=== PATIENT | male | born 1990 | race Caucasian/White ===

== ENCOUNTER 2022-05-17 10:50 | Emergency (ER) | payer SELFPAY ==
[~2022-05-17] VITALS: Ht 167.6 cm; Wt 80.0 kg
[2022-05-17] MEDS ORDERED: BACITRACIN ZINC OINT UDPKT TOP NR (11:30)
[2022-05-17] MEDS ORDERED: IBUP-2029 PO (11:34)
[2022-05-17] MEDS ORDERED: AMOX1TAB16 PO (11:34)
[2022-05-17 12:18] VITALS: BP 125/76
== END 2022-05-17 12:19 | disposition home or self-care (01) ==
LOC: ER 10:56
DX: S30.871A Other superficial bite of abdominal wall, initial encounter (principal); Z98.890 Other specified postprocedural states; W54.0XXA Bitten by dog, initial encounter; Y93.89 Activity, other specified; Y92.89 Other specified places as the place of occurrence of the external cause; Y99.8 Other external cause status
CPT/HCPCS: 99283